=== PATIENT | female | born 1970 | race Caucasian/White ===

== ENCOUNTER → 2020-09-04 | Day surgery (SDC) | payer OTHER ==
[~2020-09-04] MED LIST: ASPIRIN CHEWABL81 MG PO; BYDUREON B2 MG/0.85 SC; BYDUREON P2 MG/0.65 SC; CALCIUM600 MG PO; COLACE100 MG PO; COZAAR25 MG PO; GLIMEPIRIDE4 MG PO; HAIR SKIN NAIL1 EACH PO; HCTZ12.5 MG PO; HYDROCODONE-APA1 TAB PO; IMDUR 30MG TABL30 MG PO; LANTUS **100 UNITS/ SC; LASIX40 MG PO; LIPITOR80 MG PO; LOPRESSOR25 MG PO; METFORMIN HCL500 MG PO; NORCO 5-325 TA1 EACH PO; NORVASC5 MG PO; OZEMPIC1 MG/0.75 SC; PERCOCET 5-3251 EACH PO; PLAVIX75 MG PO; PRENATAL FORMU1 EACH PO; ST. JOSEPH ASPI81 MG PO; TOPROL XL 25MG25 MG PO; VOLTAREN **OUT50 MG PO
[2020-09-04 08:41] LABS: HCT 42.7 % (37.0-47.0); HGB 13.7 g/dl (12.5-16.0); MCH 29.8 pg (25.0-31.0); MCHC 32.1 g/dL (32.0-36.0); MCV 92.8 fL (78.0-100.0); MPV 11.4 fL (6.0-9.5); RBC 4.6 M/uL (4.20-5.40); RDW 13.3 % (11.5-14.0); WBC 6.6 K/uL (4.0-10.5)
[2020-09-04 08:57] LABS: BUN/CREAT RATIO (CALC) 22.4 RATIO; CREATININE 0.49 mg/dL (0.51-0.95); POTASSIUM 4.4 mmol/L (3.5-5.1)
== END | disposition home or self-care (01) ==
LOC: FAS 07:58
PROVIDERS: Surgery
DX: K31.89 Other diseases of stomach and duodenum (principal); K21.9 Gastro-esophageal reflux disease without esophagitis; E11.9 Type 2 diabetes mellitus without complications; I10 Essential (primary) hypertension; I25.10 Atherosclerotic heart disease of native coronary artery without angina pectoris; E78.00 Pure hypercholesterolemia, unspecified; E66.01 Morbid (severe) obesity due to excess calories; Z68.42 Body mass index [BMI] 45.0-49.9, adult; Z87.891 Personal history of nicotine dependence; Z79.4 Long term (current) use of insulin; Z79.82 Long term (current) use of aspirin; Z79.899 Other long term (current) drug therapy; Z95.5 Presence of coronary angioplasty implant and graft; Z98.84 Bariatric surgery status
CPT/HCPCS: 36415; 80048; 82962; J2250; J2704; J7120